=== PATIENT | female | born 1955 | race Caucasian/White ===

== ENCOUNTER → 2016-10-23 | Outpatient (CLI) | payer BC ==
[~2016-10-23] MED LIST: BUPR-79 PO; BUSP5TAB59 PO; CLON0.2T PO; DULO60CA44 PO; HYDR-5688 PO; LOSA100T26 PO; MELO7.5T5 PO
[2016-10-23 19:00] LABS: URINE APPEARANCE CLEAR (CLEAR); URINE BILIRUBIN NEG (NEG); URINE COLOR YELLOW; URINE NITRITE NEG (NEG); URINE PH 5.5 (4.5-7.5); URINE SPECIFIC GRAVITY 1.013 (1.000-1.030); UROBILINOGEN NEG (NEG)
[2016-10-23 19:01] LABS: MANUAL MICROSCOPIC REQUIRED? NO; REVIEW REQ? NO
== END | disposition home or self-care (01) ==
LOC: C.LAB 17:26
PROVIDERS: ATTEND Nurse Practitioner Family
DX: N20.0 Calculus of kidney (principal)

== ENCOUNTER → 2016-10-26 | Day surgery (SDC) | payer BC ==
[2016-10-22 09:16] VITALS: Ht 160 cm; Wt 126.7 kg
--- NOTE | 2016-10-22 09:54 | PAT Medication Instructions ---
Service Date Oct 22, 2016. Current Home Medication List Bupropion (Wellbutrin Sr), 150 MG PO QAM Buspirone Hcl (Buspirone Hcl), 5 MG PO BID Clonidine Hcl (Catapres), 0.2 MG PO BID Duloxetine Hcl (Cymbalta), 60 MG PO QAM Losartan Potassium & Hydrochlo (Losartan Potassium/Hydroc), 1 TAB PO QAM Meloxicam (Mobic), 15 MG PO QAM Medication Instructions For Your Scheduled Surgery - Hold the following medications the morning of surgery: Losartan Potassium & Hydrochlo (Losartan Potassium/Hydroc), 1 TAB PO QAM Meloxicam (Mobic), 15 MG PO QAM (not told to stop by surgeon) - Take the following medications the morning of surgery with a sip of water: Duloxetine Hcl (Cymbalta), 60 MG PO QAM Clonidine Hcl (Catapres), 0.2 MG PO BID Buspirone Hcl (Buspirone Hcl), 5 MG PO BID Bupropion (Wellbutrin Sr), 150 MG PO QAM - Take the following medications as scheduled the night before surgery: Clonidine Hcl (Catapres), 0.2 MG PO BID Buspirone Hcl (Buspirone Hcl), 5 MG PO BID If you have any questions please call us at [phone] or [phone] ( Katey) or [phone]
--- NOTE | 2016-10-22 10:37 | DIAGNOSTIC IMAGING REPORT ---
CHEST PREADMISSION(PA/LAT) CLINICAL HISTORY: Preoperative evaluation. COMPARISON STUDY: No previous studies for comparison. FINDINGS: There is mild elevation of the right hemidiaphragm. Lung volumes are normal. No pneumothorax or pleural effusion is present. There is subsegmental atelectasis within the right middle lobe. There is no evidence of pulmonary edema. Mild cardiomegaly is noted. IMPRESSION: 1. No acute cardiopulmonary findings. 2. Mild cardiomegaly. Electronically signed by: Dev Vasques M.D. 10/22/2016 10:35 AM Dictated Date/Time: 10/22/2016 10:35 AM
[2016-10-22 10:57] LABS: HEMATOCRIT 37.5 % (37-47); MEAN CORPUSCULAR HEMOGLOBIN 31.1 pg (25-34); MEAN CORPUSCULAR HGB CONC 34.1 g/dl (32-36); MEAN PLATELET VOLUME 9.5 fL (7.4-10.4); PLATELET COUNT 278 K/uL (130-400); RED BLOOD COUNT 4.12 M/uL (4.2-5.4); WHITE BLOOD COUNT 7.43 K/uL (4.8-10.8)
[2016-10-22 11:01] LABS: URINE APPEARANCE CLOUDY (CLEAR); URINE BILIRUBIN NEG (NEG); URINE COLOR YELLOW; URINE EPITHELIAL CELL AUTO >30 /lpf (0-5); URINE NITRITE NEG (NEG); URINE PH 7.5 (4.5-7.5); URINE SPECIFIC GRAVITY 1.014 (1.000-1.030); UROBILINOGEN NEG (NEG)
[2016-10-22 11:05] LABS: MANUAL MICROSCOPIC REQUIRED? NO; REVIEW REQ? YES
[2016-10-22 11:20] LABS: BUN/CREATININE RATIO 17.1 (10-20); CALCIUM 9.5 mg/dl (8.5-10.1); POTASSIUM 3.6 mmol/L (3.5-5.1)
--- NOTE | 2016-10-25 15:46 | DIAGNOSTIC IMAGING REPORT ---
KUB CLINICAL HISTORY: Nephrolithiasis. COMPARISON STUDY: CT of the abdomen and pelvis September 17, 2016 and KUB September 17, 2016. FINDINGS: A 1.3 cm calculus within the lower pole of the left kidney is unchanged. A few calcified granulomas within the spleen are noted. Pelvic calcifications likely reflect phleboliths although make evaluation for ureteral calculi difficult. Bowel gas pattern is normal. IMPRESSION: 1. No change in the 1.3 cm calculus within the lower pole of the left kidney. 2. Numerous pelvic calcifications which reflect phleboliths although decrease sensitivity for the detection of ureteral calculi. Electronically signed by: Dev Vasques M.D. 10/25/2016 3:45 PM Dictated Date/Time: 10/25/2016 3:42 PM
[~2016-10-26] VITALS: Ht 160 cm; Wt 126.7 kg
[~2016-10-26] MED LIST changes: +ATROPINE SULFATE 0.1 MG/ML 5ML SYR IV PRN; +CIPROFLOXACIN 400MG / D5W IV SCH; +DEXAMETHASONE SOD INJ 4 MG/ML VIAL ONE; +EpHEDrine SULFATE INJ 50 MG/ML AMP IV PRN; +FENTANYL CITRATE INJ 50 MCG/1 ML 2 ML VIAL IV PRN; +FENTANYL CITRATE INJ 50 MCG/1 ML 2 ML VIAL ONE; +LACTATED RINGER'S 1000ML 1,000 ML IV SCH; +LIDOCAINE HCL 2% 2 ML VIAL (20MG/ML) ONE; +ONDANSETRON INJ 2 MG/ML 2 ML VIAL IV PRN; +ONDANSETRON INJ 2 MG/ML 2 ML VIAL ONE; +OXYCODONE/ACETAMINOPHEN 5-325 TAB PO PRN; +PROPOFOL IV EMULSION 10 MG/ML 20 ML VIAL IV ONE; +SODIUM CHLORIDE 0.9% 1000ML 1,000 ML IV SCH
--- NOTE | 2016-10-26 09:22 | Discharge Instructions-SurgCtr ---
Discharge Instructions Visit Reason for Visit: Stones Discharge Discharge Diagnosis / Problem: treat stones Discharge Goals Goal(s): Decrease discomfort, Improve function, Increase independence, Improve disease control Medications Stopped Medications Name(s): Marie stopped on saturday Activity Recommendations Activity Limitations: resume your previous activity Lifting Limitations: none Exercise/Sports Limitations: none May Resume Sexual Activity: when tolerated Shower/Bathe: no limitations Driving or Machine Use: no limitations (as long as you are off of pain meds) Anesthesia . Post Anesthesia Instructions: If you have had General Anesthesia or IV Sedation: * Do not drive today. * Resume driving when surgeon permits. * Do not make important decisions or sign legal documents today. * Call surgeon for: 1. Temperature elevations greater than 101 degrees F. 2. Uncontrollable pain. 3. Excessive bleeding. 4. Persistent nausea and vomiting. 5. Medication intolerance (nausea, vomiting or rash). * For nausea and vomiting use only clear liquids such as: tea, soda, bouillon until nausea subsides, then gradually increase diet as tolerated. * If you have any concerns or questions, call your surgeon's office. If physician is unavailable and it is an emergency, call 911 or go to the nearest emergency room. . Diet Recommendations Home Diet: no limitations Procedures Procedures Performed: ESWL Pending Studies Studies pending at discharge: no Medical Emergencies . Who to Call and When: Medical Emergencies: If at any time you feel your situation is an emergency, please call 911 immediately. . Non-Emergent Contact Non-Emergency issues call your: Urologist Call Non-Emergent contact if: you have a fever, temperature is above 101.5, your pain is not controlled, your pain is worsening . . "Provider Documentation" section prepared by Patric Canales.
--- NOTE | 2016-10-26 09:37 | History & Physical Bridge Note ---
H&P Re-Evaluation Bridge Note: I have examined the patient, reviewed the History & Physical and in the interval since the performance of the History & Physical I have noted the following changes of clinical significance: No changes noted
--- NOTE | 2016-10-26 10:19 | [facility] Post Operative Brief Note ---
Immediate Operative Summary Operative Date Oct 26, 2016. Pre-Operative Diagnosis Left Renal Calculi Post-Operative Diagnosis Same Procedure(s) Performed Left Extracorporeal Shock Wave Lithotripsy Surgeon Dr. Reza Siu Oil Extractor Surgeon(s) None Estimated Blood Loss 0 mL Findings Large left lower pole stone - appeared to fragment well Specimens None Drains none Anesthesia gen Complication(s) None Disposition Recovery Room / PACU (stable)
--- NOTE | 2016-10-26 10:45 | Anesthesia Progress Nt - [facility] ---
Anesthesia Post Op Note Date & Time Oct 26, 2016 at 10:45 Vital Signs Pain Intensity: 0 Vital Signs Past 12 Hours Date Time Temp Pulse Resp B/P Pulse Ox O2 Delivery O2 Flow Rate FiO2 10/26/16 10:32 36.7 55 20 134/77 99 Mask 10 10/26/16 07:20 36.9 88 18 141/82 96 Room Air Notes Mental Status: alert / awake / arousable, participated in evaluation Pt Amnestic to Procedure: Yes Nausea / Vomiting: adequately controlled Pain: adequately controlled Airway Patency, RR, SpO2: stable & adequate BP & HR: stable & adequate Hydration State: stable & adequate Anesthetic Complications: no major complications apparent
[2016-10-26 11:00] VITALS: TEMP 36.8
[2016-10-26 11:31] VITALS: BP 126/70; PULSE 75; O2SAT 93
--- NOTE | 2016-10-26 16:06 | OPERATIVE REPORT ---
DATE OF OPERATION: 10/26/2016 PREOPERATIVE DIAGNOSIS: Left renal calculus. POSTOPERATIVE DIAGNOSIS: Left renal calculus. PROCEDURE PERFORMED: Left extracorporal shock wave lithotripsy. SURGEON: Dr. Eagle Siu. ANESTHESIA: General. ESTIMATED BLOOD LOSS: 0. URINE OUTPUT: Not recorded. SPECIMENS: None. DRAINS: No drains. DESCRIPTION OF THE PROCEDURE: Janette Dominique was identified in the preoperative holding area. Appropriate informed consents were reviewed and completed and the patient was transported to the operating suite. Upon arrival, she received appropriate preoperative antibiotics in the form of ciprofloxacin. Adequate general anesthesia was achieved and the patient was placed in supine position and the stone was localized under fluoroscopy. A total of 2500 shocks were then delivered to the stone. Further details can be found on the [facility] Management Information Sheet. At the conclusion of the case, the patient was extubated and taken to PACU in stable condition. I attest to the content of the Intraoperative Record and any orders documented therein. Any exceptio ns are noted below.
== END | disposition home or self-care (01) ==
LOC: X.SURG 06:13
PROVIDERS: ATTEND Urology
DX: N20.0 Calculus of kidney (principal); M79.7 Fibromyalgia; E22.1 Hyperprolactinemia; E03.9 Hypothyroidism, unspecified

== ENCOUNTER → 2016-11-06 | Outpatient (CLI) | payer BC ==
[~2016-11-06] MED LIST changes: -ATROPINE SULFATE 0.1 MG/ML 5ML SYR IV PRN; -CIPROFLOXACIN 400MG / D5W IV SCH; -DEXAMETHASONE SOD INJ 4 MG/ML VIAL ONE; -EpHEDrine SULFATE INJ 50 MG/ML AMP IV PRN; -FENTANYL CITRATE INJ 50 MCG/1 ML 2 ML VIAL IV PRN; -FENTANYL CITRATE INJ 50 MCG/1 ML 2 ML VIAL ONE; -LACTATED RINGER'S 1000ML 1,000 ML IV SCH; -LIDOCAINE HCL 2% 2 ML VIAL (20MG/ML) ONE; -ONDANSETRON INJ 2 MG/ML 2 ML VIAL IV PRN; -ONDANSETRON INJ 2 MG/ML 2 ML VIAL ONE; -OXYCODONE/ACETAMINOPHEN 5-325 TAB PO PRN; -PROPOFOL IV EMULSION 10 MG/ML 20 ML VIAL IV ONE; -SODIUM CHLORIDE 0.9% 1000ML 1,000 ML IV SCH
--- NOTE | 2016-11-06 15:59 | DIAGNOSTIC IMAGING REPORT ---
KUB CLINICAL HISTORY: N20.0 [id number] COMPARISON STUDY: 10/25/2016 FINDINGS: There are 2 lower pole left renal calculi measuring 4 mm and 13 mm respectively. There is no pathologic bowel dilatation. There are multiple nonspecific pelvic basin calcifications. IMPRESSION: Left-sided nephrolithiasis. Electronically signed by: Negrito Rocha M.D. 11/06/2016 3:58 PM Dictated Date/Time: 11/06/2016 3:57 PM
== END | disposition home or self-care (01) ==
LOC: C.RADBC 15:41
PROVIDERS: ATTEND Urology
DX: N20.0 Calculus of kidney (principal)

== ENCOUNTER → 2017-02-18 | Outpatient (CLI) | payer BC ==
[~2017-02-18] MED LIST changes: -LOSA100T26 PO; +LOSA100T33 PO
[2017-02-18 14:22] LABS: BASO % 0.3 %; BASO ABS # 0.03 K/uL (0-0.2); COMPLETE YES; EOS % 2.4 %; IG% 0.2 %; LYMPH % 27.1 %; LYMPH ABS # 2.53 K/uL (1.2-3.4); MEAN CELL VOLUME 91.5 fL (80-100); MEAN CORPUSCULAR HEMOGLOBIN 30.5 pg (25-34); MEAN CORPUSCULAR HGB CONC 33.3 g/dl (32-36); MEAN PLATELET VOLUME 10.3 fL (7.4-10.4); MONO % 7.2 %; NEUT % 62.8 %; PLATELET COUNT 337 K/uL (130-400); RED BLOOD COUNT 4.59 M/uL (4.2-5.4); WHITE BLOOD COUNT 9.35 K/uL (4.8-10.8)
[2017-02-18 14:35] LABS: ALT/SGPT 36 U/L (12-78); BLOOD UREA NITROGEN 23 mg/dl (7-18); BUN/CREATININE RATIO 27.9 (10-20); CARBON DIOXIDE 29 mmol/L (21-32); CHLORIDE 103 mmol/L (98-107); CREATININE 0.84 mg/dl (0.60-1.20); GLUCOSE 116 mg/dl (70-99); SODIUM 141 mmol/L (136-145)
[2017-02-18 14:46] LABS: ALB/GLOB RATIO 1.2 (0.9-2); ALKALINE PHOSPHATASE 78 U/L (45-117); AST/SGOT 24 U/L (15-37)
[2017-02-18 15:10] LABS: CALCIUM 10.1 mg/dl (8.5-10.1)
[2017-02-18 16:31] LABS: LYME DISEASE AB IGG NEG (NEG); LYME DISEASE AB IGM NEG (NEG)
== END | disposition home or self-care (01) ==
LOC: C.LABSPEC 13:37
PROVIDERS: ATTEND Family Medicine
DX: R53.83 Other fatigue (principal)

== ENCOUNTER → 2017-02-20 | Outpatient (CLI) | payer BC ==
--- NOTE | 2017-02-20 10:19 | DIAGNOSTIC IMAGING REPORT ---
MRI OF THE LEFT FOREFOOT WITHOUT IV CONTRAST CLINICAL HISTORY: Left foot pain and swelling of one year duration. Clinical concern for plantar neuroma. COMPARISON STUDY: MRI of the left forefoot dated 01/16/2016. Radiographs of the left foot dated 01/09/2016. TECHNIQUE: MRI of the left forefoot is performed utilizing various T1 and T2-weighted sequences in the axial, sagittal, and coronal planes. IV contrast was not administered for this examination. FINDINGS: There is no MRI evidence of fracture in the forefoot. Mild arthritic change is seen at the first and third metatarsophalangeal joints. In the third metatarsal head there is drop in T1 signal with only minimally increased T2 signal. There is no associated flattening of the metatarsal head. There is a lobulated T1 hypointense structure between the second and third metatarsophalangeal joints seen on axial image #28 of 40 and coronal image #15 of 38. This measures 1.2 x 1.5 x 0.5 cm and the appearance is suggestive of a small Alves neuroma. This is located at the level of the patient's marker. There is subcutaneous soft tissue edema along the dorsal surface of the forefoot, greatest at the level of the tarsometatarsal joints. The visualized flexor and extensor tendons appear maintained. The regional musculature is normal as visualized. No organized fluid collection is identified. IMPRESSION: 1. Mild arthritic change as above. There is no MRI evidence of fracture. 2. 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 This is deep to the marker noting the site of pain. 3. Nonspecific soft tissue edema is present along the dorsal aspect of the foot. 4. The changes in the head of the third metatarsal show drop in T1 signal with only minimally increased T2 signal. There is no flattening of the metatarsal head. This may represent degenerative change or possibly Freiberg's fraction. Dictated: 02/20/2017 8:46 AM Transcribed: 02/20/2017 10:19 AM [place] Electronically signed by: Shaquille Jensen M.D. 02/20/2017 10:46 AM Dictated Date/Time: 02/20/2017 8:46 AM
== END | disposition home or self-care (01) ==
LOC: C.MRI 01-31 14:38
PROVIDERS: ATTEND Podiatrist Foot & Ankle Surgery
DX: G57.82 Other specified mononeuropathies of left lower limb (principal); M19.272 Secondary osteoarthritis, left ankle and foot; M24.875 Other specific joint derangements left foot, not elsewhere classified

== ENCOUNTER → 2017-11-14 | Outpatient (CLI) | payer OTHER ==
[~2017-11-14] MED LIST changes: -HYDR-5688 PO
== END | disposition home or self-care (01) ==
LOC: C.MAMM 15:17
PROVIDERS: ATTEND Internal Medicine Nephrology
DX: E21.3 Hyperparathyroidism, unspecified (principal)

== ENCOUNTER → 2018-01-17 | Outpatient (CLI) | payer OTHER ==
[~2018-01-17] VITALS: Ht 160 cm; Wt 128.1 kg
[2018-01-17 15:05] VITALS: BP 188/83; PULSE 93; Ht 160 cm; Wt 128.1 kg
== END | disposition home or self-care (01) ==
LOC: C.NEUR 14:30
PROVIDERS: ATTEND Internal Medicine Pulmonary Disease
DX: G47.33 Obstructive sleep apnea (adult) (pediatric) (principal); G47.61 Periodic limb movement disorder; G25.81 Restless legs syndrome; E66.9 Obesity, unspecified; Z68.42 Body mass index [BMI] 45.0-49.9, adult; I10 Essential (primary) hypertension; M79.7 Fibromyalgia; E21.3 Hyperparathyroidism, unspecified; Z79.899 Other long term (current) drug therapy

== ENCOUNTER → 2018-02-04 | Outpatient (CLI) | payer OTHER ==
--- NOTE | 2018-02-05 06:00 | PAP/PSG TECHNICIAN REPORT ---
[facility] Client Technical Specialist Polysomnogram Report Study name: None Report date: 02/05/2018 Study date: 02/04/2018 Referring Physician: Alfredo Mcgowan M.D. Name: CHET FLANAGAN Carol Interpreting Physician: Alfredo Mcgowan M.D. Date of : 1955 Client Technical Specialist: Amy Bishop RPSGT. Sex: Female Age: 62 Study Type: PSG PAP Weight: 282 lbs 16 IN Height: 62 years, Height 5' 3" Neck Circum: BMI: 49.95 Medications: HYDROCHLOROTHIAZIDE 25 MG, IBUPROFEN 200 MG, POTASSIUM 15 MEQ Patient History 62 yr-old female here for a CPAP update study. She has had some trouble tolerating her CPAP treatment and her equipment is about 10 years old. She is back to assess her CPAP pressure and to be eligible for new equipment. She is wearing a Nelson FX nasal pillows mask size medium from [employer]. She requested to get up 4:40 am for work. The test was started on room air and 4 CMH2O. ETCO2 testing was not utilized during this study. Room 3 Parameters Monitored NPSG: E1-M2, E2-M1, Fp1-M2, Fp2-M1, F3-M2, F4-M2, F4-M1, C3-M2, C4-M2, C4-M1, O1-M2, O2-M2, O2-M1, T3-M2, T4-M1, P3-M2, P4-M1, CHIN1, CHIN2, HR, EKG, Legs, PFLOW, SNOR, FLOW, CFLOW, Tidal Volume, THOR, ABDO, SpO2, PLTH, CPRESS, ETCO2 Wave, ETCO2, pH Sleep Architecture Sleep Stages Time at Lights Off 8:35:39 PM STAGES Time (min.) TST (%) Time at Lights On 4:08:39 AM Wake 86.5 -- Total Recording Time (TRT) 453.00 min. N1 34.0 9 Total Sleep Period (TSP) 418.5 min. N2 221.5 60 Total Sleep Time (TST) 366.5min. N3 31.5 9 Awake Time 86.5 min. REM 79.5 22 Wake after Sleep Onset 70.0 min. Sleep Efficiency (SE) 81 % Sleep Onset Latency (CRISSY) 16.5 min. Number of Stage 1 Shifts None Awakenings 15 Stage Changes 109 Number of REM periods 3 REM 79.5 22 REM Latency 87.5 min. NREM 287.0 78 Body Position Analysis Supine Right Left Side Prone Vertical Total Sleep Time (min.) 0.1 215.0 151.5 366.50 0.0 0.0 Total Sleep Time (%) 0% 59% 41% 100 0% N/A% Total Sleep Time REM (min.) 0.0 63.0 16.5 None 0.0 0.0 Total Sleep Time NREM (min.) 0.0 152.0 135.0 None 0.0 0.0 Intermittent Wake (min.) 0.1 47.9 38.5 None 0.0 0.0 Total Sleep Period (%) 0% None None None None None Arousals Myoclonus (PLM) * Events Count Index Events Count Index Spontaneous 24 4 Events Awake (PLMW) 102 70.8 Respiratory 1 0.2 Events Asleep w/ Arousal (PLMA) 73 12.0 PLM 72 12 Events Asleep w/o Arousal (PLMS) 331 54.2 Snoring 2 0 Total Asleep 404 66.1 Total 99 16 Total 506 67 Respiratory Analysis * CA OA MA CH H RERA Total Count 0 0 0 0 31 0 31 Index 0.0 0.0 0.0 0 5.1 0 5.1 Mean Duration 0.0 0.0 0.0 0.00 16.4 0.0 16.4 Longest Duration 0.0 0.0 0.0 0.00 0.0 0.0 32.9 Respiratory Event Summary Total Supine ~Supine Right Left Prone REM NREM Apneas Count 0 N/A 0 0 0 N/A 0 0 Index 0.0 N/A 0 0.0 0.0 N/A 0 0 Hypopneas (4% Desat) Count 31 N/A 31 16 15 N/A 25 6 Index 5.1 N/A 5 4.5 5.9 N/A 18.9 1.3 Apneas & All Hypopneas Count 31 N/A 31 16 15 N/A 25 6 Index 5.1 N/A 5 4 6 N/A 18.9 1.3 Respiratory Events (Transmission Operator+All Hyp+RERA) Count 31 N/A 31 16 15 N/A 25 6 Index 5.1 N/A 5 4.5 5.9 N/A 18.9 1.3 Respiratory Related Arousal Count 1 N/A 1 1 0 N/A 0 1 Index 0.2 N/A 0 0 0 N/A 0 0 Snoring Analysis Supine Right Left Prone REM NREM Total Snore duration 8.8 min Snores count N/A 18 423 N/A 118 323 441 Snore mean duration 1.2 Sec Snores index N/A 5 168 N/A 89.1 67.5 72.2 TST with snoring (%) 2.4% Desaturation Event Summary: Minimum %SpO2 Event Count Mean/Min/Max Duration(sec.) Desaturation Index % Time In Bed > 90 57 23.9 / 6.8 / 53.8 8.5 94.3 86 - 90 11 15.6 / 6.8 / 31.5 31.0 5.0 81 - 85 1 12.3 / 12.3 / 12.3 21.1 0.7 76 - 80 0 N/A 0.0 0.0 71 - 75 0 N/A 0.0 0.0 66 - 70 0 N/A 0.0 0.0 61 - 65 0 N/A 0.0 0.0 56 - 60 0 N/A 0.0 0.0 51 - 55 0 N/A 0.0 0.0 < 50 0 N/A 0.0 0.0 Total REM NREM Awake <50% 0.0 min. 0.0 min. 0.0 min. 0.0 min. 51 - 60% 0.0 min. 0.0 min. 0.0 min. 0.0 min. 61 - 70% 0.0 min. 0.0 min. 0.0 min. 0.0 min. 71 - 80% 0.0 min. 0.0 min. 0.0 min. 0.0 min. 81 - 90% 24.1 min. 14.2 min. 7.6 min. 2.3 min. 91 - 100% 402.2 min. 65.3 min. 279.4 min. 57.5 min. Average 93 93 93 94 Minimum SpO2 82 82 88 83 Desaturation Event Index 8.3 24.9 3.6 9.0 # Desat. Events below 89% 18 16 N/A 2 Time(%) with Saturation below 89% 1.7 1.3 0.0 0.3 Time(min.) with Saturation below 89% 7.2 5.6 0.2 1.4 Time (mins) REM (mins) NREM (mins) % of TST SpO2 Below 90% 36 26 N10 2.7 SpO2 Below 88% 6 0 0 1 Heart Rate Analysis Min (bpm) Max (bpm) Average (bpm) Awake 58 250 76 NREM 54 81 63 REM 56 77 64 Overall 54 81 63 Supplemental O2 Values Minimum O2 level: None Value Start Time End Time Client Technical Specialist Comments Ms. Flanagan slept in the right and left positions. No cardiac arrhythmias were noted. PLMs and numerous arousals from leg movements were noted. No bruxism noted. CPAP was initiated at +4 CMH2O and up-titrated to a level of +9 CMH2O, Cflex 2 which nearly eliminated all respiratory events and snoring. A Nelson FX nasal pillows mask size medium from [employer] was used during titration. She awoke to use the restroom two times during the night. Ms. Flanagan stated that she slept about the same as usual. The final report will be interpreted and signed by a sleep physician. The completed physician report will then be placed in the patient medical record. CPAP REPORT Therapy Detail Time / Page # Comment CPAP 4 cm H2O Nasal Pillow Mask Flex Pressure Relief Humidifier on 8:34:24 PM / pg. 62 CPAP 6 cm H2O Nasal Pillow Mask Flex Pressure Relief Humidifier on 10:38:37 PM / pg. 310 INCREASED FOR HYPOPNEAS CPAP 7 cm H2O Nasal Pillow Mask Flex Pressure Relief Humidifier on 1:40:29 AM / pg. 674 INCREASED FOR HYPOPNEAS IN REM CPAP 9 cm H2O Nasal Pillow Mask Flex Pressure Relief Humidifier on 2:34:35 AM / pg. 782 HYPOPNEAS IN REM Therapy Event: Therapy (cm H20) 4 6 7 9 Total Time at Pressure (min.) 123.0 181.9 54.1 94.1 TST at Pressure (min.) 95.5 142.3 54.1 74.6 # Periods 1 1 1 1 Sleep Onset (min.) 16.5 1.0 0.0 0.0 REM Onset (min.) 104.0 171.0 0.0 0.0 Sleep Efficiency % 77 78 100 79 Wakefulness (%) 22.3 21.7 0.0 20.7 Wakefulness (min.) 27.5 39.5 0.0 19.5 NREM 1 (%) 10.6 9.3 0.0 4.3 NREM 1 (min.) 13.0 17.0 0.0 4.0 NREM 2 (%) 44.3 52.0 5.5 73.9 NREM 2 (min.) 54.5 94.5 3.0 69.5 NREM 3 (%) 9.4 11.0 0.0 0.0 NREM 3 (min.) 11.5 20.0 0.0 0.0 REM (%) 13.4 6.0 94.5 1.1 REM (min.) 16.5 10.8 51.1 1.1 # Arousals 35 48 6 10 Arousal Index 22.0 20.2 6.7 8.0 # Snore 402 29 3 7 Snore Index 252.6 12.2 3.3 5.6 AHI 9.4 2.1 12.2 0.0 AHI Supine N/A N/A N/A N/A AHI Non-Supine 9.4 2.1 12.2 0.0 NREM AHI 3.8 0.5 0.0 0.0 REM AHI 36.4 22.2 12.9 0.0 RDI 9.4 2.1 12.2 0.0 # Obstructive 0 0 0 0 # Central Ap 0 0 0 0 # Mixed 0 0 0 0 # Hypopneas 15 5 11 0 RERAS 0 0 0 0 Total Respiratory Events 15 5 11 0 Time Below SpO2 89.00% (min.) 3.4 1.6 0.8 0.0 Mean NREM SpO2 (%) 92 92 94 94 Mean REM SpO2 (%) 91 91 94 95 Mean Sleep SpO2 (%) 92 92 94 94 Min NREM SpO2 (%) 88 89 93 93 Min REM SpO2 (%) 82 84 85 94 Position Supine (min.) 0.0 0.0 0.0 0.0 Position Non-supine (min.) 95.5 142.3 54.1 74.6 LM Index Sleep 124.4 68.3 20.0 20.9 LM Index NREM 138.2 73.0 0.0 21.2 LM Index REM 58.2 11.1 21.1 0.0 Mean Heart Rate (bpm) 67 63 62 60 Min Heart Rate (bpm) 60 56 56 54
--- NOTE | 2018-02-06 11:21 | POLYSOMNOGRAPH REPORT ---
CLINICAL DATA: A 62-year-old female with a history of sleep apnea, PLMD and RLS with progressive symptoms of fatigue. Her current CPAP machine is not functioning correctly and she did not feel like she was getting benefit from it. She was sent for a CPAP titration study. She wore a Nelson FX nasal pillow size medium from [employer]. SLEEP ARCHITECTURE: Total sleep period was 418.5 minutes. Total sleep time was 366.5 minutes divided between 287 minutes of non-REM sleep and 79.5 minutes of REM sleep. Sleep onset latency was 16.5 minutes. REM latency was 87.5 minutes. Sleep efficiency was 81%. Wake after sleep onset was 70 minutes. Sleep consisted of stage N1 9%, stage N2 60%, stage N3 9%, and REM 22%. AROUSAL DATA: 99 arousals were recorded for an index of 16 per hour. 72 were due to PLMs. PERIODIC LIMB MOVEMENT DATA: Severe PLMD was noted. There were 404 limb movements during sleep noted for an index of 66 per hour with an arousal index of 12 per hour. RESPIRATORY DATA: The AHI was 5.1. There were 31 hypopneic episodes with a mean duration of 16.4 seconds. OXIMETRY DATA: Nocturnal hypoxemia was seen. Oxygen tree was 82% during REM. Mean saturation was 93%. Time below 88% was 6 minutes. EKG: Heart rates ranged from 54-81 beats per minute. No arrhythmias were noted. CASEY SAW OPERATOR'S COMMENTS AND TREATMENT SUMMARY: The patient slept in the right and left positions. PLMs and numerous arousals from leg movements were noted. The patient was started on CPAP and was titrated up to a final pressure setting of 9 cm water pressure, C-flex 2. At her final pressure setting, she slept for 74.6 minutes with an AHI of 0. IMPRESSION: 1. Obstructive sleep apnea corrected with CPAP 9 cm of water pressure, C-Flex setting #2 Nelson FX nasal pillows mask size medium from [employer]. 2. Severe PLMD with frequent arousals during the night due to leg movements. RECOMMENDATIONS: The patient should be started on CPAP 9 cm water pressure, C-Flex setting #2 with the above noted interface. Treatment for PLMD could be considered. MTDD
== END | disposition home or self-care (01) ==
LOC: C.NEUR 20:00
PROVIDERS: ATTEND Internal Medicine Pulmonary Disease
DX: I10 Essential (primary) hypertension (principal); E66.9 Obesity, unspecified; G47.33 Obstructive sleep apnea (adult) (pediatric); G47.61 Periodic limb movement disorder; G25.81 Restless legs syndrome

== ENCOUNTER → 2018-02-18 | Outpatient (CLI) | payer OTHER ==
[~2018-02-18] VITALS: Ht 160 cm; Wt 128.8 kg
[2018-02-18 16:01] VITALS: BP 164/91; PULSE 98; Ht 160 cm; Wt 128.8 kg
== END | disposition home or self-care (01) ==
LOC: C.NEUR 15:29
PROVIDERS: ATTEND Physician Assistant Medical
DX: G47.33 Obstructive sleep apnea (adult) (pediatric) (principal); G47.61 Periodic limb movement disorder; E66.9 Obesity, unspecified

== ENCOUNTER → 2018-05-23 | Outpatient (CLI) | payer OTHER ==
[~2018-05-23] VITALS: Ht 160 cm; Wt 122.2 kg
[2018-05-23 13:57] VITALS: BP 167/76; PULSE 94; Ht 160 cm; Wt 122.2 kg
== END | disposition home or self-care (01) ==
LOC: C.NEUR 13:22
PROVIDERS: ATTEND Internal Medicine Pulmonary Disease
DX: G47.33 Obstructive sleep apnea (adult) (pediatric) (principal); G47.61 Periodic limb movement disorder; E66.9 Obesity, unspecified

== ENCOUNTER 2020-11-15 06:27 | Observation (INO) ==
--- NOTE | 2020-10-21 13:52 | Anesthesiology Consultation ---
Date of Service October 21, 2020 Assessment & Plan (1) Encounter for pre-operative examination: Chart Review Chart Review: Acceptable Risk for Surgery (pending preop Covid testing ) and Patient NOT seen in Pre Admission Testing -Per records- patient with severe claustrophobia. Per nursing assessment 10/21/20, patient resides in [facility]. 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 No known Covid positive contacts or Covid related symptoms. Denies any known Covid infection in the past 90 days. Pt scheduled for preop Covid testing 11/09/20= will await results. Left ESWL 03/18/20= Done under [facility] with LMA #4. History Surgery Operation Date: 11/15/20 08:50 Proposed Procedures p Right Total Knee Replacement - Adrien Kinney MD Height/Weight Height: 5 ft 3 in Weight: 119.295 kg Allergies Allergy/AdvReac Type Severity Reaction Status Date / Time Penicillins Allergy Severe Hives, Verified 10/21/20 10:37 severe doxycycline Allergy Intermediate foot Verified 10/21/20 10:37 swelling Sulfa (Sulfonamide Allergy Intermediate RASH Verified 10/21/20 10:37 Antibiotics) lisinopril AdvReac Mild cough Verified 10/21/20 10:37 Medications Home Medications Medication Instructions Recorded Confirmed Last Taken melatonin 50 mg PO HS PRN 07/09/19 10/21/20 03/17/20 potassium citrate 15 mEq (1,620 30 meq PO BID #240 tab 10/12/19 10/21/20 03/17/20 mg) tablet,extended release B12 Active 1,000 mcg PO QAM 03/11/20 10/21/20 Unknown ferrous sulfate [iron] 325 mg PO 2XWK 03/11/20 10/21/20 03/17/20 metoprolol tartrate 75 mg tablet 75 mg PO BID #180 tab 05/12/20 10/21/20 Unknown hydrochlorothiazide 25 mg tablet 25 mg PO QAM #90 tab 06/27/20 10/21/20 Unknown Wheeled Walker #1 ea 07/27/20 07/27/20 Unknown meloxicam 15 mg PO QAM 08/11/20 10/21/20 Unknown Past Medical History Medical History (Updated 10/21/20 @ 13:53 by Katey Vieira PA-C) Anemia stable/on iron supplement Anxiety Claustrophobia severe Degenerative disc disease Depression Fibromyalgia stable History of hypothyroidism euthyroid off meds HTN (hypertension) Hyperglycemia Hgb A1C 6.2 on 08/17/20 Kidney stones Migraine hx Morbid obesity Osteoarthritis Sleep apnea CPAP Past Family History Family History Father Kidney stones Hypertension Grandfather (Maternal) Gastric cancer Mother Diabetes Other Family history non-contributory Past Surgical History Surgical History History of appendectomy History of carpal tunnel release of both wrists History of colonoscopy History of hammertoe correction right foot and bunion (+ hardware) History of hysterectomy History of lithotripsy Left ESWL: 03/18/20: LMA#4 at [facility] [place] History of tonsillectomy History of tubal ligation History of wisdom tooth extraction Status post correction of deviated nasal septum Status post excision of Alves's neuroma Status post trigger finger release right Social History Smoking Status: Never smoker Do You Dip or Chew Tobacco: No Hx Alcohol Use: Yes Alcohol type: beer, wine and other alcohol intake frequency: a few times a month Hx Substance Use: No substance use type: does not use Testing Laboratory Results Laboratory Tests 08/17/20 10/18/20 10/18/20 14:49 11:12 11:12 WBC 8.58 Hgb 13.0 Hct 38.9 Plt Count 352 PT 10.1 INR 1.0 Sodium Potassium Chloride Carbon Dioxide BUN Creatinine Glucose Hemoglobin A1c 6.2 H 10/18/20 11:12 WBC Hgb Hct Plt Count PT INR Sodium 141 Potassium 3.7 Chloride 106 Carbon Dioxide 31 BUN 21 H Creatinine 0.84 Glucose 126 H Hemoglobin A1c 10/18/20= T&S: A positive, antibody negative Electrocardiogram Date: 12/04/19 SR at 69bpm. Chest X-Ray Date: 03/09/20 Findings: + NAD Mild elevation of the right hemidiaphragm is unchanged.
--- NOTE | 2020-11-12 14:03 | History and Physical Report ---
DATE OF ADMISSION: 11/15/2020 CHIEF COMPLAINT: Bilateral knee pain and discomfort. HISTORY OF PRESENT ILLNESS: The patient is a 65-year-old female who was a previous patient of Dr. Rodríguez who presents for surgical treatment of her knees. She has a long history of bilateral knee pain and discomfort that has gradually gotten worse over time. She has been through extensive conservative treatment including various injections, which have become less successful over time. Both knees hurt pretty equally. Her walking tolerance is only a couple blocks. It is really affecting her quality of life. She cannot exercise or walk any distance. Pain is constant. She has nighttime pain. She would like to have her knees fixed. She was scheduled previously but canceled to the [employer] and now rescheduled. PAST MEDICAL HISTORY: 1. Hypertension. 2. Sleep apnea, on CPAP machine. 3. Anxiety. 4. Arthritis. 5. Back pain. 6. Obesity with a BMI of 48. 7. Kidney stones. PAST SURGICAL HISTORY: Include: 1. Appendectomy. 2. Tonsillectomy. 3. Nasal surgery. 4. Carpal tunnel release. 5. Trigger fingers release. 6. Tubal ligation. 7. Bunion repair. 8. Oral surgery. 9. Neuroma removed from her foot. ALLERGIES: PENICILLIN, WHICH CAUSES HIVES. No breathing problems. ALSO ALLERGIES TO SULFA. CURRENT MEDICATIONS: Include: 1. Iron. 2. Hydrochlorothiazide. 3. Vitamin B12. 4. Melatonin. 5. Meloxicam. 6. Metoprolol 25 mg twice a day. 7. Potassium 30 mEq a day in divided doses. SOCIAL HISTORY: A 65-year-old female. She does not smoke. Occasional alcohol intake. FAMILY HISTORY: Noncontributory. REVIEW OF SYSTEMS: Negative for diabetes. Denies any chest pain or shortness of breath. No history of DVT or PE. No known bleeding problems. PHYSICAL EXAMINATION GENERAL: Shows a fairly large middle-aged female. Looks to be in reasonably good health. HEENT: Benign. NECK: Supple, no lymphadenopathy. LUNGS: Clear to auscultation. HEART: Has a regular rate and rhythm. ABDOMEN: Soft, nontender, nondistended. EXTREMITIES: Grossly neurovascularly intact except as follows. Examination of both lower extremities reveals the patient ambulates with a bit of a waddling type gait. She has got moderate to large soft tissue envelope. Examination of the right knee reveals a fairly neutral alignment. Range of motion about 5 degrees short of full extension to 120 degrees of flexion. Diffuse tenderness to palpation. Small to moderate-sized knee effusion. No pain with hip motion. She is neurologically intact. Examination of left knee reveals fairly neutral alignment. Moderate to large soft tissue envelope. Small knee effusion. Range of motion 5-125. No instability. X-RAYS: X-rays of both knees were reviewed. It shows advanced bilateral knee DJD. The right side is a bit worse than the left. She has got complete loss of medial joint space. ASSESSMENT: A 65-year-old female with advanced bilateral knee degenerative joint disease, right side worse radiographically, but pretty equal in symptoms. She has failed conservative measures and would like to have knee surgery in both knees. PLAN: We talked about treatment. We are going to proceed with right knee replacement. The risks and benefits of right total knee replacement were explained to the patient including but not limited to DVT, PE, , infection, neurological injury, vascular injury, bleeding problem, pain, limited range of motion, stiffness, failure to relieve symptoms, incomplete relief of symptoms, need for further surgery in future, fracture, leg length inequality, nerve palsy, need for revision surgery, and incomplete relief of symptoms. The patient understands and desires to proceed. Informed consent was obtained. I did talk to her about her large size and BMI and her increased risk of infection. I do not think we should consider doing both knees at the same time. We did talk to her about taking her metoprolol on the morning of surgery and holding her hydrochlorothiazide and Mobic preoperative.
[~2020-11-15 06:27] MED LIST changes: +ACETAMINOPHEN 500 MG TAB PO SCH; +BUPIVACAINE LIPOSOME/PF 266 MG, BUPIVACAINE/EPINEPHRINE 50 ML, SODIUM CHLORIDE 0.9% 30 ... INFIL SCH; -BUPR-79 PO; -BUSP5TAB59 PO; -CLON0.2T PO; -DULO60CA44 PO; +FAMOTIDINE 20 MG TAB PO SCH; +GABAPENTIN 600 MG DOSE PO SCH; -LOSA100T33 PO; +LR 500ML BOLUS, THEN 15ML/HR IV SCH; +LR 60ML/HR IV SCH; -MELO7.5T5 PO; +METOCLOPRAMIDE HCL 10 MG TABLET PO SCH; +TRANEXAMIC ACID 1,000 MG **IV Intra-op IV SCH
[2020-11-15] MEDS ORDERED: BUPIVACAINE 0.5 % 5 MG/1 ML PF 10ML VIAL ONE (06:38)
[2020-11-15] MEDS ORDERED: ROPIVACAINE 0.5% 5 MG/ML 30 ML VIAL ONE (06:38)
--- NOTE | 2020-11-15 06:48 | History & Physical Bridge Note ---
Date of Service November 15, 2020 History & Physical Bridge Note I have examined the patient, reviewed the History & Physical and in the interval since the performance of the History & Physical I have noted the following changes of clinical significance: no changes noted
[2020-11-15] MEDS ORDERED: MIDAZOLAM HCL 1 MG/ML 2ML VIAL ONE ×2 (07:10→08:37)
[2020-11-15] MEDS ORDERED: PROPOFOL IV EMULSION 10 MG/ML 20 ML VIAL IV ONE ×7 (07:11→10:39)
[2020-11-15] MEDS ORDERED: VANCOMYCIN HCL 2,000 MG in SODIUM CHLORIDE 0.9% 500 ML IV ONE (07:15)
[2020-11-15] MEDS ORDERED: SODIUM CHLORIDE 0.9% PF 50 ML VIAL ONE (08:59)
[2020-11-15] MEDS ORDERED: BUPIVACAINE LIPOSOME 1.3% 266 MG/20 ML VIAL ONE (08:59)
[2020-11-15] MEDS ORDERED: BACITRACIN INJ 50,000 UNIT VIAL ONE (08:59)
[2020-11-15] MEDS ORDERED: BUPIVACAINE 0.25% 30 ML VIAL ONE (09:00)
[2020-11-15] MEDS ORDERED: EPINEPHrine INJ 1 MG/ML AMP ONE (09:00)
[2020-11-15] MEDS ORDERED: ePHEDrine sulfate 50 MG/ML SYR ONE (09:34)
[2020-11-15] MEDS ORDERED: PHENYLEPHRINE 100MCG/ML 5ML SYR ONE (09:34)
--- NOTE | 2020-11-15 11:04 | Post Operative Brief Note ---
PG Immediate Post Op with CF Date of Surgery November 15, 2020 Pre & Post Diagnosis Operation Date: 11/15/20 08:50 Pre-Op Diagnosis: Right Knee Degenerative Joint Disease Post-Op Diagnosis: Right Knee Degenerative Joint Disease I identified the patient and participated in the time-out.: Yes Procedure Operation Date: 11/15/20 08:50 Actual Procedures p Right Total Knee Replacement(Right) - Adrien iKnney MD Surgeon Adrein Kinney MD Javascript Ui Developer NIK Noriega Estimated Blood Loss 50 Findings Consistent with Post-Op Diagnosis Fluids 750 cc Specimens Specimen Description: A: Right Knee Bone and Tissue Anesthesia Type Spinal MAC Complications none Disposition Accompanied Patient To Recovery: No Disposition: Recovery Room
[2020-11-15] MEDS ORDERED: ePHEDrine sulfate 50 MG/ML AMP IV PRN (11:16)
[2020-11-15] MEDS ORDERED: ONDANSETRON INJ 2 MG/ML 2 ML VIAL IV PRN ×2 (11:16→12:17)
[2020-11-15] MEDS ORDERED: ATROPINE SULFATE 0.1 MG/ML 10ML SYR IV PRN (11:16)
[2020-11-15] MEDS ORDERED: HYDROmorphone INJ 1 MG/ML SYRINGE IV PRN (11:16)
[2020-11-15] MEDS ORDERED: KETOROLAC 30 MG/ML VIAL IV PRN (11:16)
--- NOTE | 2020-11-15 11:34 | XRay Report ---
XR knee RT 1 or 2V routine HISTORY: 65 years-old Female Surgical Post Op right knee total joint arthroplasty COMPARISON: Knee radiographs 02/24/2020 TECHNIQUE: 2 views the right knee FINDINGS: Right knee total joint arthroplasty and patella resurfacing. Anterior midline skin flakita are noted along with expected postsurgical soft tissue swelling and deep tissue air with surgical drainage cath eter. No acute fracture, malalignment or unexpected opaque foreign body. IMPRESSION: Right knee total joint arthroplasty and patella resurfacing with expected postoperative c hanges. ACT 112: Negative or not required by law. The above report was generated using voice recognition software. It may contain grammatical, syntax o r spelling errors. Electronically signed by: Elvis Gavin M.D. 11/15/2020 11:33 AM
[2020-11-15] MEDS ORDERED: NALOXONE HCL 0.4 MG/1 ML VIAL/CARP IV PRN (12:17)
[2020-11-15] MEDS ORDERED: ALUMINUM/MAGNESIUM SUSP 30 ML UDC PO PRN (12:17)
[2020-11-15] MEDS ORDERED: diphenhydrAMINE Capsule 25 MG CAP PO PRN (12:17)
[2020-11-15] MEDS ORDERED: METOCLOPRAMIDE HCL INJ 5 MG/ML 2 ML VIAL IV PRN (12:17)
[2020-11-15] MEDS ORDERED: HYDROmorphone INJ 0.5 MG/0.5 ML SYR IV PRN (12:17)
[2020-11-15] MEDS ORDERED: NON-FORMULARY MEDICATION (Ferrous Sulfate [Iron] 325 mg (65 mg iron) Tablet) PO SCH (12:17)
[2020-11-15] MEDS ORDERED: bisacodyL 10 MG SUPP PR PRN (12:17)
[2020-11-15] MEDS ORDERED: VANCOMYCIN CONSULT ACTIVE PRN (12:17)
[2020-11-15] MEDS ORDERED: MAGNESIUM HYDROXIDE SUSP 30 ML UDC PO PRN (12:17)
[2020-11-15] MEDS ORDERED: SODIUM CHLORIDE 0.9% 1000ML 1,000 ML IV SCH (12:17)
--- NOTE | 2020-11-15 13:19 | Anesthesiology Progress Note ---
Date of Service November 15, 2020 Anesthesia Post Procedure Vital Signs Vital Signs: Temp Pulse Pulse Resp BP BP Pulse Ox 11/15/20 13:18 36.6 C 70 18 150/88 H 98 11/15/20 12:50 62 16 165/84 H 99 11/15/20 12:20 36.5 C 70 16 142/71 H 100 11/15/20 12:00 67 14 160/73 H 97 11/15/20 11:50 36.3 C L 67 16 163/67 H 97 11/15/20 11:40 70 20 164/70 H 98 11/15/20 11:30 69 18 168/80 H 100 11/15/20 11:20 73 16 142/72 H 100 11/15/20 11:10 36.1 C L 82 14 121/59 L 97 11/15/20 07:35 37.4 C 64 18 151/83 H 97 Transfer of Care Handoff Completed per policy Notes Mental Status: alert / awake / arousable Patient Amnestic to Procedure: Yes Nausea / Vomiting: adequately controlled Pain: adequately controlled Airway Patency, RR, SpO2: stable & adequate BP & HR: stable & adequate Hydration State: stable & adequate Anesthetic Complications: no major complications apparent
[2020-11-15] MEDS: ACETAMINOPHEN 500 MG TAB PO SCH ×2 (13:24→21:00)
[2020-11-15] MEDS: KETOROLAC 30 MG/ML VIAL IV SCH ×2 (13:25→18:12)
[2020-11-15] MEDS: Scopolamine CHECK PATCH PLACEMENT SCH (15:17)
[2020-11-15] MEDS: FERROUS GLUCONATE 324 MG TAB PO SCH (16:31)
[2020-11-15] MEDS: ASCORBIC ACID 500 MG TAB PO SCH (16:31)
[2020-11-15] MEDS ORDERED: TRANEXAMIC ACID / 0.7% NACL 1,000 MG/100 ML BAG IV SCH (17:00)
--- NOTE | 2020-11-15 17:29 | Operative Report ---
Post Operative Report Pre & Post Diagnosis Operation Date: 11/15/20 08:50 Pre-Op Diagnosis: Right Knee Degenerative Joint Disease Post-Op Diagnosis: Right Knee Degenerative Joint Disease I identified the patient and participated in the time-out.: Yes Procedure Operation Date: 11/15/20 08:50 Actual Procedures p Right Total Knee Replacement(Right) - Adrien Kinney MD Surgeon Adrien Kinney MD Edi Programmer NIK Noriega Estimated Blood Loss 50 Findings Consistent with Post-Op Diagnosis Operative findings revealed advanced right knee DJD. She had grade 4 [id number] disease of the medial compartment as well as the patellofemoral compartment. She had some spotty grade 4 changes laterally. Moderate-sized joint effusion. Very large soft tissue envelope with a BMI of 48. Fluids 750 cc. Specimens Be sent for pathology. Drains None. Anesthesia Type Spinal MAC Complications none Disposition Accompanied Patient To Recovery: No Disposition: Recovery Room Indications Patient is a 65-year-old female with significant obesity with BMI 48 is had a long history bilateral knee pain discomfort patient been through extensive conservative treatment provided by my partner in the past. She is failed all conservative measures. Her knees are limiting her activity level and ability to attempt weight loss. She elected to proceed with right total knee arthroplasty. Description of Procedure Operative implants consist of: 1 Biomet Vanguard size 65 right posterior stabilized femoral component. 2. Biomet size 71 tibial tray. 3. 12 mm posterior stabilized polyethylene insert. 4. 31 x 8 all polypatella. The patient was taken to the operating identified placed on the operating table supine position but all contact areas were properly padded. IV antibiotics tried by anesthesia team. Spinal anesthetic and abductor canal block had provided in the holding area. Leyva catheter was placed in sterile fashion. Right thigh turn was then placed in the right lower extremities and prepped and draped in usual sterile fashion. The right leg was elevated exsanguinated with use of an Esmarch and turns placed at 350 mmHg. An anterior approach of the right knee was then performed through longitudinal incision centered over the patella. Sharp dissection was got through subcutaneous is down the extensor mechanism. A medial parapatellar arthrotomy incision was made. Some subperiosteal dissection was carried out medially. The fat pad was resected from each patella tendon. The lateral patellofemoral ligament was released. The patella was subluxated laterally. The knee was flexed. The osteophytes were taken off the distal femur. The ACL and PCL were then released from distal femur and the tibia subluxated anteriorly. The external tibial alignment jig was then placed in the interface the tibia and adjusted 14 mm medially. Proximal tibial cut was made remove about 2 mm of bone from the most deficient aspect of the medial till plateau. The tibia was then sized to a size 71. Attention drawn the femur. The distal femur was entered with a sharp drill followed by the fluted reamer. We did did suction out the IM canal. A right 5 degree valgus cutting guide was placed. Distal femoral cutting block was pinned in place but distal femoral cut was made to take an additional 3 mm bone off distal femur. The femur was then sized to a size 65. The AP cutting block was pinned parallel to the epicondylar axis which was 3 degrees of external rotation. The anterior cut, anterior chamfer, posterior cut, posterior chamfer cuts were made. Box cutting guide was placed in the just slight lateral box cut was made. The knee was flexed. The remnants of the medial lateral menisci were excised. The osteophytes were taken off the posterior aspect of the femur. Femoral component was placed. The tibial tray was pinned in maximum external rotation and the drill and stem punch were used to create defect in proximal to for the tibial tray. The knee was then trialed the 12 mm insert fit most appropriately. Attention drawn to the patella. The patella was cleaned of all soft tissues. Patella thickness measured 21 mm in thickness was cut down 13. Was sized to a size 31 patella. The locals were drilled for the patella. The lateral osteophyte was removed. Patella button was placed. Knee was taken through range of motion patella tracked nicely with no thumbs test. Attention drawn to place the permanent components. All trial components were removed. A bone plug was placed in the distal femur limit blood loss put a double batch [place] G cement was mixed. A Biomet Vanguard size 65 right posterior stabilized femoral component, size 71 tibial tray, a 12 mm posterior stabilized polyethylene insert, and a 31 x 8 all polypatella were then cemented in place. Knee was brought out into full extension total cement hardened. Final cement check was then performed. The pericapsular tissues were injected with total 100 cc of combination of 20 cc of Exparel, 30 cc of normal saline, 50 cc of quarter percent Marcaine with epinephrine. Patient did receive 1 g tranexamic acid. The tourniquet was then let down for a final turn time of 59 minutes. Hemostasis assured use electrocautery. The wounds once again irrigated. The extensor mechanism was then closed with a combination 1 PDS suture #1 Vicryl suture in [id number] fashion. Extensor mechanism checked found to be intact the subcutaneous tissue then closed with 2 Dexon suture in a buried knot fashion skin was closed skin flakita. Leg was then cleaned dried a sterile dressed with Xeroform, 4 x 4's, sterile cast padding, Víctor bandage applied. Patient then transferred to the recovery room in stable condition. The patient tolerated the procedure well and there were no complications. Mark Noriega, my physician orthodontic technician assistant, was present for the entire procedure. His assistance was essential and required for appropriate patient positioning, prepping and draping, surgical exposure, performing the technical details of the operation, placement the implants, closure of the wound, and placement of the sterile bandage. I attest to the content of the Intraoperative Record and any orders documented therein. Any exceptions are noted below.
[2020-11-15] MEDS ORDERED: VANCOMYCIN HCL 2,000 MG in SODIUM CHLORIDE 0.9% 500 ML IV SCH (19:00)
[2020-11-15] MEDS: TAPENTADOL HCL ER 50 MG TABCR PO SCH (20:57)
[2020-11-15] MEDS: METOPROLOL TARTRATE 25 MG TAB PO SCH (20:57)
[2020-11-15] MEDS: POTASSIUM CITRATE 10 MEQ TAB PO SCH (20:57)
[2020-11-15] MEDS: DOCUSATE SODIUM 100 MG CAP PO SCH (20:57)
[2020-11-15] MEDS: ASPIRIN 81 MG ECTAB PO SCH (20:57)
[2020-11-15] MEDS ORDERED: SENNA 8.6 MG TAB PO SCH (21:00)
[2020-11-16] MEDS: KETOROLAC 30 MG/ML VIAL IV SCH ×2 (00:08→06:02)
[2020-11-16] MEDS: Scopolamine CHECK PATCH PLACEMENT SCH ×2 (00:08→09:17)
[2020-11-16] MEDS: oxyCODONE HCL IR 5 MG TAB (IMMEDIATE RELEASE) PO PRN ×2 (04:11→10:58)
[2020-11-16] MEDS: ACETAMINOPHEN 500 MG TAB PO SCH (05:51)
[2020-11-16 06:29] LABS: Hematocrit (blood only) 33.3 % (37-47); Hemoglobin 11.3 g/dL (12.0-16.0); Mean Corpuscular Hemoglobin 31.7 pg (25-34); Mean Corpuscular Hgb Conc 33.9 g/dL (32-36); Mean Corpuscular Volume 93.3 fL (80-100); Mean Platelet Volume 9.6 fL (7.4-10.4); Platelet Count 285 K/uL (130-400); RDW Coefficient of Variation 13.3 % (11.5-14.5); RDW Standard Deviation 45.4 fL (36.4-46.3); Red Blood Count 3.57 M/uL (4.2-5.4); White Blood Count 8.06 K/uL (4.8-10.8)
[2020-11-16 07:04] LABS: BUN Creatinine Ratio 19.4 (10-20); Calcium 8.9 mg/dl (8.5-10.1); Creatinine Clr Calc Pharmacy 82.5 ml/min; Est GFR (African American) 78.9
[2020-11-16] MEDS ORDERED: dexAMETHasone 4 MG TAB PO SCH (08:00)
--- NOTE | 2020-11-16 08:15 | Anesthesiology Progress Note ---
Date of Service November 16, 2020 Anesthesia Post Procedure Vital Signs Vital Signs: Temp Pulse Pulse Resp BP Pulse Ox 11/16/20 07:29 36.8 C 51 L 18 150/71 H 100 11/16/20 05:50 154/71 H 11/16/20 03:58 37.0 C 59 L 18 179/77 H 100 11/15/20 23:04 36.9 C 56 L 18 159/83 H 98 11/15/20 20:50 61 160/74 H 98 11/15/20 19:33 36.9 C 59 L 18 164/75 H 100 11/15/20 15:20 36.6 C 65 18 166/74 H 100 11/15/20 14:20 36.4 C L 58 L 18 167/68 H 98 11/15/20 13:18 36.6 C 70 18 150/88 H 98 11/15/20 12:50 62 16 165/84 H 99 11/15/20 12:20 36.5 C 70 16 142/71 H 100 11/15/20 12:00 67 14 160/73 H 97 11/15/20 11:50 36.3 C L 67 16 163/67 H 97 11/15/20 11:40 70 20 164/70 H 98 11/15/20 11:30 69 18 168/80 H 100 11/15/20 11:20 73 16 142/72 H 100 11/15/20 11:10 36.1 C L 82 14 121/59 L 97 Notes Mental Status: alert / awake / arousable and participated in evaluation Patient Amnestic to Procedure: Yes Nausea / Vomiting: adequately controlled Pain: adequately controlled Airway Patency, RR, SpO2: stable & adequate Hydration State: stable & adequate Neuraxial Anesthesia: was administered and sensory block is resolving Anesthetic Complications: no major complications apparent and Pt Satisfied with anesthetic care
[2020-11-16] MEDS ORDERED: CYANOCOBALAMIN 500 MCG TABLET (VITAMIN B-12) PO SCH (09:00)
[2020-11-16] MEDS ORDERED: hydroCHLOROthiazide 25 MG TAB PO SCH (09:00)
[2020-11-16] MEDS ORDERED: MULTIVITAMIN TAB PO SCH (09:00)
[2020-11-16] MEDS: DOCUSATE SODIUM 100 MG CAP PO SCH (09:16)
[2020-11-16] MEDS: FERROUS GLUCONATE 324 MG TAB PO SCH (09:16)
[2020-11-16] MEDS: POTASSIUM CITRATE 10 MEQ TAB PO SCH (09:16)
[2020-11-16] MEDS: ASCORBIC ACID 500 MG TAB PO SCH (09:16)
[2020-11-16] MEDS: METOPROLOL TARTRATE 25 MG TAB PO SCH (09:17)
[2020-11-16] MEDS: TAPENTADOL HCL ER 50 MG TABCR PO SCH (09:21)
--- NOTE | 2020-11-16 10:10 | Progress Notes ---
DATE: 11/16/2020 SUBJECTIVE: A 65-year-old female postop day 1 from right knee replacement. She is doing pretty well. Pain is controlled. She had a pretty good night. She is anxious to try and get home. OBJECTIVE: VITAL SIGNS: Temperature is 36.8. Vital signs are stable. GENERAL: Shows a pleasant, middle-aged female. She is sitting up in her bedside chair, talking to the therapist. She looks pretty comfortable this morning. LUNGS: Clear to auscultation. HEART: Has a regular rate and rhythm. ABDOMEN: Soft, nontender, nondistended. EXTREMITIES: Grossly neurovascularly intact except as follows: Examination of the right leg reveals the dressing to be clean, dry and intact. She can dorsiflex and plantarflex her foot appropriately. She can do a pretty good straight leg raise. She is neurologically intact. LABORATORY DATA: Hemoglobin 11.3. Hematocrit 33.3. Electrolytes are stable. ASSESSMENT: A 65-year-old female postoperative day 1 from right knee replacement, doing pretty well. Pain is controlled. She is neurologically intact. PLAN: 1. DVT prophylaxis including thigh-high TEDs, SCDs, and aspirin twice a day. 2. PT/OT. Weight bear as tolerated. Right total knee protocol. 3. Pain control, doing well with current pain regimen. 4. Disposition: Plan to discharge to home with some home health later today.
[2020-11-16] MEDS: ASPIRIN 81 MG ECTAB PO SCH (10:59)
--- NOTE | 2020-11-18 13:21 | Discharge Summary ---
Date of Service November 18, 2020 Discharge Data Consultations 11/15/20 12:17 Consult Case Management - Discharge Planning Routine Procedures Performed Operation Date: 11/15/20 08:50 Actual Procedures p Right Total Knee Replacement(Right) - Adrien Kinney MD Hospital Course (1) Status post total right knee replacement: This patient is a 65 year old female admitted on 11/15/20 and underwent total knee arthroplasty. She tolerated the procedure well and there were no complications. Transferred to the PACU post op and later to the orthopedic floor for further care. She was given ancef for antibiotic prophylaxis. She was also given DYLAN stockings, SCDs, and aspirin for DVT prophylaxis. Hemoglobin, keiko tocrit, and vital signs were monitored during her hospital stay and remained stable. Did not require any blood transfusions. There were no complications during her hospital stay. By post op day #1 the patient was tolerating a regular diet, pain was reasonably controlled with oral pain medicine, and she was participating in physical therapy. On post op day #1 the patient was discharged home and set up with home health care. She was given printed discharge instructions including prescriptions for extra strength tylenol, aspirin, and oxycodone. Continue physical therapy, weight bearing as tolerated. Continue DYLAN stockings. Follow up approximately 2 weeks post op or sooner if there are problems or concerns. Coding Level of Care Code None Diagnoses Status post total right knee replacement Z96.651
== END 2020-11-16 12:22 | disposition home health service (06) ==
LOC: ASU 06:27 → 3E 06:27